=== PATIENT | female | born 1975 | race Caucasian/White ===

== ENCOUNTER 2017-02-21 21:04 | Emergency (ER) | payer OTHER ==
[~2017-02-21] VITALS: Ht 154.9 cm; Wt 54.0 kg
[~2017-02-21 21:04] MED LIST: CLEOCIN300 MG PO; DEPAKOTE ER250 MG PO; DESYREL100 MG PO; DIVALPROEX SOD250 MG PO
[2017-02-21] MEDS ORDERED: AUGMENTIN875 MG PO (23:40)
[2017-02-21] MEDS ORDERED: FLONASE16 G1 BOTH NARES (23:40)
[2017-02-21] MEDS ORDERED: ALLEGRA-D 121 TABLET PO (23:40)
[2017-02-21 23:52] VITALS: BP 173/115
== END 2017-02-21 23:53 | disposition home or self-care (01) ==
LOC: EME 21:04
DX: H65.00 Acute serous otitis media, unspecified ear (principal); J01.90 Acute sinusitis, unspecified
CPT/HCPCS: 99281; 99283